=== PATIENT | male | born 1980 | race Caucasian/White ===

== ENCOUNTER 2017-09-11 18:51 | Emergency (ER) | payer MEDICAID ==
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
--- NOTE | 2017-09-11 20:01 | ER Document Report ---
ED General <BABITAMICHA Laura - Last Filed: 09/11/17 22:49> - General Mode of Arrival: Ambulatory Information source: Patient TRAVEL OUTSIDE OF THE [place] IN LAST 30 DAYS: No <AGUSTO DELUCA - Last Filed: 09/11/17 23:00> - General Chief Complaint: Neck pain/ arm numbness/ chest discomfort Stated Complaint: HEAD/NECK INJURY Time Seen by Provider: 09/11/17 18:53 Notes: Patient is a 37-year-old male with spondylitis, kidney failure, diabetes with a history of DVT presents to the emergency department complaining of head and neck pain onset yesterday. [place] julio yesterday at approximately 12 PM. Patient states the pain is located in the back of his neck which radiates into the right arm which is also numb and tingling and further states the pain has worsened since last night. Patient denies any lower back pain or lower extremity pain. Patient is currently taking Eliquis, Prilosec, Atorvastatin and Lantus. ( AGUSTO DELUCA) - Related Data Allergies/Adverse Reactions: pollen extracts Allergy (Verified 09/11/17 20:15) bee sting Allergy (Uncoded 09/11/17 18:56) Past Medical History - General Information source: Patient - Social History Smoking Status: Never Smoker Chew tobacco use (# tins/day): No Frequency of alcohol use: Occasional Drug Abuse: Marijuana Family History: Reviewed & Not Pertinent Patient has suicidal ideation: No Patient has homicidal ideation: No - Past Medical History Cardiac Medical History: Reports: Hx DVT Endocrine Medical History: Reports: Hx Diabetes Mellitus Type 2 Renal/ Medical History: Reports: Other - Kidney Failure Musculoskeltal Medical History: Reports Other - Spondylitis Past Surgical History: Reports: Hx Colostomy - Previous colostomy bag <AGUSTO DELUCA - Last Filed: 09/11/17 23:00> Review of Systems - Review of Systems Constitutional: No symptoms reported EENT: No symptoms reported <AGUSTO DELUCA - Last Filed: 09/11/17 23:00> Physical Exam <MICHA JC Valentín - Last Filed: 09/11/17 22:49> <AGUSTO DELUCA - Last Filed: 09/11/17 23:00> - Vital signs Vitals: Temp 98.2 F 09/11/17 18:55 - Notes Notes: GENERAL: Alert, interacts well. No acute distress. HEAD: Normocephalic, atraumatic. EYES: Pupils equal, round, and reactive to light. Extraocular movements intact. ENT: Oral mucosa moist, tongue midline. NECK: Placed in a c-collar. LUNGS: Clear to auscultation bilaterally, no wheezes, rales, or rhonchi. No respiratory distress. Reproducible tenderness to palpation to the sternum. HEART: Regular rate and rhythm. No murmurs, gallops, or rubs. ABDOMEN: Soft, non-tender. Non-distended. EXTREMITIES: Moves all 4 extremities spontaneously. FROM of motion with BUE and BLE. No edema, radial and dorsalis pedis pulses 2/4 bilaterally. No cyanosis. NEUROLOGICAL: Alert and oriented x3. Normal speech. 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 PSYCH: Normal affect, normal mood. SKIN: Warm, dry, normal turgor. No rashes or lesions noted. (AGUSTO DELUCA) Course - Laboratory Result Diagrams: 09/11/17 19:00 <MICHA JC - Last Filed: 09/11/17 22:49> - Laboratory Result Diagrams: 09/11/17 19:00 <AGUSTO DELUCA - Last Filed: 09/11/17 23:00> - Re-evaluation Re-evalutation: 09/11/17 22:49 Imaging shows no acute abnormalities. Patient's c-collar was removed able to rotate his head greater than 45 left and right. Patient will be d/c at this time. (MICHA JC) - Vital Signs Vital signs: Temp Pulse Resp BP Pulse Ox 98.2 F 9 L 138/82 H 100 09/11/17 18:55 09/11/17 20:28 09/11/17 20:28 09/11/17 20:28 - Laboratory Laboratory results interpreted by me: 09/11/17 19:00 Glucose 170 H Discharge <MICHA JC - Last Filed: 09/11/17 22:49> <AGUSTO DELUCA - Last Filed: 09/11/17 23:00> - Discharge Clinical Impression: Sternal pain Cervical strain, acute Qualifiers: Encounter type: initial encounter Qualified Code(s): S16.1XXA - Strain of muscle, fascia and tendon at neck level, initial encounter Disposition: HOME, SELF-CARE Instructions: Chest Wall Pain ([facility]), Neck Injury (Cervical Strain) ([facility]) Additional Instructions: Please follow-up with your family doctor when returning to your home town for reevaluation if your symptoms are continuing. Since you are on blood thinners do not take any anti-inflammatories for your pain. I prescribed prednisone you can use for 5 days and you can also use Tylenol. Prescriptions: Prednisone [Deltasone 20 mg Tablet] 2 tab PO DAILY 5 Days #10 tablet Scribe Documentation - Scribe Written by Millie:: Millie Lewis, 09/11/2017 20:04 acting as scribe for :: Long <AGUSTO DELUCA - Last Filed: 09/11/17 23:00>
[2017-09-11 20:05] LABS: ANION GAP 12 (5-19); BLOOD UREA NITROGEN 13 mg/dL (7-20); CALCIUM 9.5 mg/dL (8.4-10.2); CARBON DIOXIDE 28 mmol/L (22-30); CHLORIDE 101 mmol/L (98-107); GLUCOSE 170 mg/dL (75-110); POTASSIUM 4.5 mmol/L (3.6-5.0)
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
[2017-09-11] MEDS ORDERED: METOCLOPRAMIDE HCL INJ/PF 10 MG/2 ML SDV IV ONE (20:22)
[2017-09-11] MEDS ORDERED: MORPHINE SULFATE 10 MG/ML INJ IV ONE (20:22)
--- NOTE | 2017-09-11 22:39 | RADIOLOGY REPORT (SQ) ---
EXAM DESCRIPTION: XR CHEST 2 VIEWS COMPLETED DATE/TME: 09/11/2017 21:55 CLINICAL HISTORY: 37 years Male, sternum pain COMPARISON: None. FINDINGS: Adequate lung volume, clear parenchyma, normal cardiac silhouette, and intact bony thorax. IMPRESSION: No acute cardiopulmonary findings.
--- NOTE | 2017-09-11 22:40 | RADIOLOGY REPORT (SQ) ---
EXAM DESCRIPTION: XR STERNUM 2 OR MORE VIEWS COMPLETED DATE/TME: 09/11/2017 21:56 CLINICAL HISTORY: 37 years Male, sterum pain COMPARISON: None. Findings: Bones, joints, and soft tissues of the XR STERNUM 2 VIEWS appear intact. IMPRESSION: No acute findings.
[2017-09-11 23:22] VITALS: BP 141/85
== END 2017-09-11 23:23 | disposition home or self-care (01) ==
LOC: ER 18:51
DX: S16.1XXA Strain of muscle, fascia and tendon at neck level, initial encounter (principal); R20.0 Anesthesia of skin; R07.9 Chest pain, unspecified; X58.XXXA Exposure to other specified factors, initial encounter; Y93.11 Activity, swimming; Z79.02 Long term (current) use of antithrombotics/antiplatelets; E11.9 Type 2 diabetes mellitus without complications; Z86.718 Personal history of other venous thrombosis and embolism
CPT/HCPCS: 99284; 96374; 96375; 36415; 80048; 71046; 71120; 72125; 72128; 72131; J2765; J2270